=== PATIENT | male | born 1955 | race Caucasian/White ===

== ENCOUNTER → 2017-10-01 | Outpatient (CLI) | payer OTHER ==
--- NOTE | 2017-10-01 12:36 | US ---
EXAMINATION TYPE: US carotid duplex BILAT DATE OF EXAM: 10/01/2017 COMPARISON: NONE CLINICAL HISTORY: G45.9 Transient cerebral ischemic attack. EXAM MEASUREMENTS: RIGHT: Peak Systolic Velocity (PSV) cm/sec ----- Right CCA: 88.3 ----- Right ICA: 95.3 ----- Right ECA: 134 ICA/CCA ratio: 1.1 RIGHT: End Diastole cm/sec ----- Right CCA: 20.3 ----- Right ICA: 23.1 ----- Right ECA: 14.7 LEFT: Peak Systolic Velocity (PSV) cm/sec ----- Left CCA: 83.1 ----- Left ICA: 105 ----- Left ECA: 109 ICA/CCA ratio: 1.0 LEFT: End Diastole cm/sec ----- Left CCA: 20.4 ----- Left ICA: 38.7 ----- Left ECA: 14.7 VERTEBRALS (direction of flow): Right Vertebral: Antegrade Left Vertebral: Antegrade Rhythm: Normal Minimal plaque formation left Bulb Elevated velocity right ECA IMPRESSION: Mild grayscale atheromatous plaquing within the left carotid bulb with no hemodynamicall y significant stenosis in either common carotid or internal carotid artery.
--- NOTE | 2017-10-01 13:22 | XR ---
Cervical spine HISTORY: Neck pain, tingling and vomiting in hands and feet 6 views of the cervical spine No comparisons There is multilevel facet arthropathy. Multilevel spondylosis is present. Cervical vertebral bodies s how preserved height, alignment, and bone mineralization. Lateral extension endplate disc complex is causes foraminal encroachment at C3-4, C4-5, C5-6 and C6-7. Prevertebral soft tissues are normal. IMPRESSION: Degenerative disc disease.
== END | disposition home or self-care (01) ==
LOC: RADUSWWP 10:16
PROVIDERS: ATTEND Family Medicine
DX: M50.30 Other cervical disc degeneration, unspecified cervical region (principal); I65.22 Occlusion and stenosis of left carotid artery
CPT/HCPCS: 72050; 93880

== ENCOUNTER → 2021-06-18 | Outpatient (CLI) | payer OTHER ==
[2021-06-19 12:17] LABS: Alt. alternata IgE Class CLASS 0; Alternaria alternata IgE <0.10 kU/L (<0.10); Asperg. fumagatus IgE <0.10 kU/L (<0.10); Asperg. fumagatus IgE Class CLASS 0; Bermuda Grass IgE <0.10 kU/L (<0.10); Birch(Com.Silvr) IgE <0.10 kU/L (<0.10); Birch(Com.Silvr) IgE Class CLASS 0; Cat Epith & Dander IgE <0.10 kU/L (<0.10); Cat Epith & Dander IgE Class CLASS 0; Clad herbarum IgE <0.10 kU/L (<0.10); Clad herbarum IgE Class CLASS 0; Cockroach IgE <0.10 kU/L (<0.10); Cottonwood IgE <0.10 kU/L (<0.10); Dermato. Pteronyssinus Class CLASS 0; Dermato. Pteronyssinus IgE <0.10 kU/L (<0.10); Dermato. farinae IgE <0.10 kU/L (<0.10); Dermato. farinae IgE Class CLASS 0; Dog Dander IgE <0.10 kU/L (<0.10); Elm IgE <0.10 kU/L (<0.10); IgE (Allergen) 20.5 IU/mL (<114.0); Maple (Box Elder) IgE 0.25 kU/L (<0.10); Maple (Box Elder) IgE Class CLASS 0/1; Mountain Cedar IgE <0.10 kU/L (<0.10); Mountain Cedar IgE Class CLASS 0; Mouse Urine IgE Class CLASS 0; Mouse Urine Proteins,IgE <0.10 kU/L (0.10); Nettle IgE <0.10 kU/L (<0.10); Nettle IgE Class CLASS 0; Oak IgE <0.10 kU/L (<0.10); Penicillium chrysogenum IgE <0.10 kU/L (<0.10); Penicillium chrysogenum IgE Cl CLASS 0; Rough Marshelder IgE <0.10 kU/L (<0.10); Rough Marshelder IgE Class CLASS 0; Timothy Grass IgE <0.10 kU/L (<0.10); Timothy Grass IgE Class CLASS 0; White Ash IgE Class CLASS 0
== END | disposition home or self-care (01) ==
LOC: LABWHC1 10:41
PROVIDERS: ATTEND Otolaryngology Otolaryngology/Facial Plastic Surgery
DX: J31.0 Chronic rhinitis (principal)
CPT/HCPCS: 36415; 82785; 86003

== ENCOUNTER → 2022-06-18 | Outpatient (CLI) | payer MEDICARE, OTHER ==
--- NOTE | 2022-06-18 12:49 | XR ---
EXAMINATION TYPE: XR cervical spine comp DATE OF EXAM: 06/18/2022 COMPARISON: NONE HISTORY: Pain TECHNIQUE: Four views are submitted. FINDINGS: The odontoid is intact. There are no compression deformities. The prevertebral soft tissue structur es are within normal limits. Hypertrophic and degenerative changes of cervical spine are noted most marked at level C4-T1. Multilevel facet arthropathy. There is bilateral multilevel foraminal encroach ment. Calcifications in the soft tissue the neck likely reflect atherosclerotic change of the carotid bifurcations. IMPRESSION: 1. Multilevel moderate to severe degenerative disc disease, facet arthropathy and hypertrophic spurri ng with multilevel bilateral significant foraminal protrusion. Correlate clinically..
== END | disposition home or self-care (01) ==
LOC: RADXRMAIN 12:26
PROVIDERS: ATTEND Family Medicine
DX: M47.812 Spondylosis without myelopathy or radiculopathy, cervical region (principal); M50.30 Other cervical disc degeneration, unspecified cervical region
CPT/HCPCS: 72050

== ENCOUNTER → 2022-06-30 | Outpatient (CLI) | payer MEDICARE, OTHER ==
--- NOTE | 2022-06-30 10:30 | MR ---
MRI CERVICAL SPINE: CLINICAL HISTORY: Neck pain Neck pain TECHNIQUE: Multiplanar, multisequence imaging of the cervical spine is performed without IV contrast. COMPARISON: Cervical spine x-ray June 18, 2022 FINDINGS: Sagittal images of the cervical spine show the craniocervical junction to appear within nor mal limits. The cervical and upper thoracic spinal cord is normal in caliber and signal. There is pe rsistent reversal of normal cervical curvature centered at C5-C6 level. There is grade 1 anterolisth esis C4 on C5 redemonstrated. The vertebral body heights are normal. Mild to moderate disc space narr owing C4-C5 level. Moderate disc space narrowing and anterior spurring C5-C6 and C6-C7 levels. Hetero geneous Modic type I endplate changes at C6-C7 level noted. Axial images show C2-C3 level to appear within normal limits. Axial images at C3-C4 level show uncovertebral facet degenerative changes causing mild left and mild to moderate right-sided neural foraminal narrowing. Axial images at C4-C5 level show spondylolisthesis with left paracentral spur disc complex effacing a nterolateral thecal sac up to ventral surface of spinal cord which is indented and causing asymmetric moderate to severe left-sided neural foraminal narrowing. Axial images at C5-C6 level show posterior spur disc complex effacing the anterior thecal sac and cau sing mild to moderate right greater than left bilateral neural foraminal narrowing. Axial images at C6-C7 level from broad base posterior spur disc complex effacing the anterior thecal sac and causing moderate right and severe left-sided neural foraminal narrowing. Axial images at C7-T1 level appear within normal limits. IMPRESSION: Reversal of normal cervical curvature. Multilevel degenerative changes with most signific ant findings noted C4-C5 through C6-C7 levels as detailed above.
== END | disposition home or self-care (01) ==
LOC: RADMRIMAIN 09:28
PROVIDERS: ATTEND Family Medicine
DX: M47.812 Spondylosis without myelopathy or radiculopathy, cervical region (principal); M50.223 Other cervical disc displacement at C6-C7 level; M50.30 Other cervical disc degeneration, unspecified cervical region; M99.71 Connective tissue and disc stenosis of intervertebral foramina of cervical region; M43.12 Spondylolisthesis, cervical region
CPT/HCPCS: 72141

== ENCOUNTER → 2022-07-04 | Outpatient (CLI) | payer MEDICARE, OTHER ==
--- NOTE | 2022-07-04 15:03 | US ---
EXAMINATION TYPE: US carotid duplex BILAT DATE OF EXAM: 07/04/2022 COMPARISON: 10/01/2017 CLINICAL HISTORY: I65.29 OCCLUSION AND STENOSIS OF CAROTID ARTERY. TECHNIQUE: Carotid duplex ultrasound examination. Indirect Doppler criteria was utilized. FINDINGS: EXAM MEASUREMENTS: RIGHT: Peak Systolic Velocity (PSV) cm/sec ----- Right CCA: 97.5 ----- Right ICA: 104.4 ----- Right ECA: 106.8 ICA/CCA ratio: 1.1 RIGHT: End Diastole cm/sec ----- Right CCA: 24.3 ----- Right ICA: 23.1 ----- Right ECA: 8.7 LEFT: Peak Systolic Velocity (PSV) cm/sec ----- Left CCA: 102.0 ----- Left ICA: 77.5 ----- Left ECA: 108.4 ICA/CCA ratio: 0.8 LEFT: End Diastole cm/sec ----- Left CCA: 24.0 ----- Left ICA: 19.1 ----- Left ECA: 11.3 VERTEBRALS (direction of flow): Right Vertebral: Antegrade Left Vertebral: Antegrade Rhythm: Normal CATALYTIC CONVERTER OPERATOR NOTES: Mild plaque visualized in bilateral bulbs. No significant velocity elevations. IMPRESSION: 1. Atheromatous plaquing without significant flow-limiting stenosis. Criteria for Assigning % of Stenosis / Diameter reduction (Estimation based on the indirect measurements of the internal carotid artery velocities (ICA PSV). 1. Normal (no stenosis)=ICA PSV < 125 cm/s: ratio < 2.0: ICA EDV<40 cm/s. 2. Less than 50% stenosis=ICA PSV < 125 cm/s: ratio < 2.0: ICA EDV<40 cm/s. 3. 50 to 69% stenosis=ICA PSV of 125 to 230 cm/s: ration 2.0 ? 4.0: ICA EDV 40-100 cm/s. 4. Greater than 70% stenosis to near occlusion= ICA PSV > 230 cm/s: ratio > 4.0: ICA EDV > 100 cm/s. 5. Near occlusion= ICA PSV velocities may be low or undetectable: variable ratio and ICA EDV. 6. Total occlusion=unable to detect flow.
== END | disposition home or self-care (01) ==
LOC: RADUSWWP 13:53
PROVIDERS: ATTEND Family Medicine
DX: I65.23 Occlusion and stenosis of bilateral carotid arteries (principal)
CPT/HCPCS: 93880

== ENCOUNTER 2022-10-23 12:19 | Inpatient (IN) | payer MEDICARE, OTHER ==
[2022-10-23 13:00] LABS: Basophils % (A) 1 %; Eosinophils # (A) 0.2 k/uL (0-0.7); Eosinophils % (A) 3 %; HCT 44.1 % (39.0-53.0); Lymphocytes # (A) 1.9 k/uL (1.0-4.8); Lymphocytes % (A) 38 %; MCH 32.6 pg (25.0-35.0); MCHC 34.1 g/dL (31.0-37.0); MCV 95.6 fL (80.0-100.0); Mean Platelet Volume 8.7; Monocytes # (A) 0.4 k/uL (0-1.0); Monocytes % (A) 8 %; Neutrophils # (A) 2.3 k/uL (1.3-7.7); Neutrophils % (A) 46 %; Platelet Count 165 k/uL (150-450); RBC 4.61 m/uL (4.30-5.90); RDW 12.7 % (11.5-15.5); WBC 5.1 k/uL (3.8-10.6)
[2022-10-23 13:08] LABS: ALT 23 U/L (4-49); AST 31 U/L (17-59); African American GFR (CKD) >90 (>60 ml/min/1.73 sqM); Albumin 4.1 g/dL (3.5-5.0); Alkaline Phosphatase 88 U/L (38-126); Anion Gap 11 mmol/L; Blood Urea Nitrogen 15 mg/dL (9-20); Calcium 8.6 mg/dL (8.4-10.2); Carbon Dioxide 23 mmol/L (22-30); Chloride 105 mmol/L (98-107); Glucose 88 mg/dL (74-99); Non-African American GFR(CKD) >90 (>60 ml/min/1.73 sqM); Potassium 4.5 mmol/L (3.5-5.1); Sodium 139 mmol/L (137-145); Total Bilirubin 0.5 mg/dL (0.2-1.3)
[2022-10-23 13:18] LABS: Partial Thromboplastin Time 22.2 sec (22.0-30.0); Prothrombin Time 10.4 sec (9.0-12.0)
--- NOTE | 2022-10-23 13:35 | XR ---
EXAMINATION TYPE: XR chest 2V DATE OF EXAM: 10/23/2022 COMPARISON: None HISTORY: 67-year-old male with chest pain TECHNIQUE: PA and lateral views FINDINGS: Heart normal size. Aorta and pulmonary vasculature within normal limits. Mild patchy density at the m edial right base. No other consolidation or pleural effusion. IMPRESSION: Mild patchy atelectasis versus developing infiltrate at the medial right base. Correlate with patient 's symptoms. No other acute process seen.
--- NOTE | 2022-10-23 14:37 | ED ---
Chest Pain HPI - General Source: patient, RN notes reviewed Mode of arrival: ambulatory <Anju Lizarraga - Last Filed: 10/23/22 14:38> - General Source: RN notes reviewed, old records reviewed - History of Present Illness MD Complaint: chest pain -: hour(s) Pain Location: substernal, left chest Pain Radiation: LUE Severity: moderate Severity scale (1-10): 6 Quality: tightness, heaviness Consistency: constant Improves With: nothing Worsens With: exertion Anginal Symptoms: diaphoresis, dyspnea, sense of impending doom Other Symptoms: palpitations Treatments Prior to Arrival: none <Perry Head - Last Filed: 10/23/22 17:06> - General Chief Complaint: Chest Pain Stated Complaint: Michael sent - heart Time Seen by Provider: 10/23/22 13:57 - History of Present Illness Initial Comments: Patient is a 67-year-old male presenting to the emergency room at the direction of his primary care provider with complaints of chest pain. He reports that the pain has been ongoing intermittent but persistent for approximately 1 week. He states that he started anteriorly and was worse with movement and done change to a sharp stabbing like pain that felt as though it was radiating from his back all the way through his chest. He states that the symptoms were worse after walking his dog multiple times this week with improvement by resting and taking Motrin. At this time he is complaining of left-sided chest pain with characteristics of mild dull ache anteriorly that is worse with movement. He denies any associated symptoms including any shortness of breath, diaphoresis, headache, dizziness, edema, nausea, vomiting, fevers or chills. He reports due to cardiovascular history his family he did undergo a cardiac catheterization for diagnostics approximately 20 years ago which was negative. (Anju Lizarraga) - Related Data Home Medications Medication Instructions Recorded Confirmed Fluticasone Nasal [place] [Flonase 1 spr EA NOSTRIL BID 10/23/22 10/23/22 Nasal [place]] Glucosam/Niko-Msm1/C/Gilbert/Bosw 1 tab PO DAILY 10/23/22 10/23/22 [Glucosamine-Chondroitin Tablet] Loratadine [Claritin] 10 mg PO DAILY 10/23/22 10/23/22 Allergies Allergy/AdvReac Type Severity Reaction Status Date / Time No Known Allergies Allergy Verified 10/23/22 15:38 Review of Systems ROS Other: All systems not noted in ROS Statement are negative. <Anju Lizarraga - Last Filed: 10/23/22 14:38> ROS Other: All systems not noted in ROS Statement are negative. <AdilenePerry B - Last Filed: 10/23/22 17:06> ROS Statement: Those systems with pertinent positive or pertinent negative responses have been documented in the HPI. EKG Findings - EKG Comments: EKG Findings:: EKG shows sinus rhythm 68 IA 154 QRS 96 QTc 394 - EKG Results: EKG: interpreted by ERMD, not changed from: (Repeat EKG shows sinus 68 IA 151 QRS [address] QTc [address] elevation) <Perry Head - Last Filed: 10/23/22 17:06> Past Medical History Past Medical History: No Reported History History of Any Multi-Drug Resistant Organisms: None Reported Past Surgical History: Orthopedic Surgery Additional Past Surgical History / Comment(s): bilat knees. nasal Past Psychological History: No Psychological Hx Reported Smoking Status: Never smoker Past Alcohol Use History: Occasional Past Drug Use History: None Reported <Anju Lizarraga - Last Filed: 10/23/22 14:38> General Exam <Anju Lizarraga - Last Filed: 10/23/22 14:38> General appearance: alert, in no apparent distress Head exam: Present: atraumatic, normocephalic, normal inspection Eye exam: Present: normal appearance, PERRL, EOMI. Absent: scleral icterus, conjunctival injection, periorbital swelling ENT exam: Present: normal exam, mucous membranes moist Neck exam: Present: normal inspection. Absent: tenderness, meningismus, lymphadenopathy Respiratory exam: Present: normal lung sounds bilaterally. Absent: respiratory distress, wheezes, rales, rhonchi, stridor Cardiovascular Exam: Present: regular rate, normal rhythm, normal heart sounds. Absent: systolic murmur, diastolic murmur, rubs, gallop, clicks GI/Abdominal exam: Present: soft, normal bowel sounds. Absent: distended, tenderness, guarding, rebound, rigid Extremities exam: Present: normal inspection, full ROM, normal capillary refill. Absent: tenderness, pedal edema, joint swelling, calf tenderness Back exam: Present: normal inspection Neurological exam: Present: alert, oriented X3, CN II-XII intact Psychiatric exam: Present: normal affect, normal mood Skin exam: Present: warm, dry, intact, normal color. Absent: rash <Perry Head - Last Filed: 10/23/22 17:06> - General Exam Comments Initial Comments: Visual Physical Exam Vital signs reviewed General: Well-appearing, nontoxic, no acute distress. Head: Normocephalic, atraumatic Eyes: PERRLA, EOMI ENT: Airway patent Chest: Nonlabored breathing Skin: No visual rash, normal skin tone Neuro: Alert and oriented 3 Musculoskeletal: No gross abnormalities (Anju Lizarraga) Course <Perry Head - Last Filed: 10/23/22 17:06> Vital Signs 10/23/22 10/23/22 12:25 15:08 Temperature 97.7 F Pulse Rate 71 73 Respiratory 18 18 Rate Blood Pressure 157/88 146/77 O2 Sat by Pulse 98 96 Oximetry - Reevaluation(s) Reevaluation #1: 10/23/22 17:02 Medical record is reviewed (Perry Head) Reevaluation #2: 10/23/22 17:02 Patient symptoms remain episodic here in the ER (Perry Head) Reevaluation #3: 10/23/22 17:04 Patient symptoms remain episodic as he is not showing exertion (Perry Franks pp) Reevaluation #4: 10/23/22 17:04 Was pt. sent in by a medical professional or institution? @ -no Did you speak to anyone other than the patient for history? @ -no Did you review nursing and triage notes? @ -agree Were old charts reviewed? @ -no Differential Diagnosis? @ -prior EKG interpreted by me (3pts min.)? @ -yes X-rays interpreted by me (1pt min.)? @ -yes CT interpreted by me (1pt min.)? @ -no U/S interpreted by me (1pt. min.)? @ -no What testing was considered but not performed? (CT, X-rays, U/S, labs)? Why? @ -no What meds were considered but not given? Why? @ -no Did you discuss the management of the patient with other professionals? @ -no Did you reconcile home meds? @ -no Was smoking cessation discussed for >3mins.? @ -no Was critical care preformed (if so, how long)? @ -Yes Were there social determinants of health that impacted care today? How? (Homelessness, low income, unemployed, alcoholism, drug addiction, t ransportation, low edu. Level, literacy, decrease access to med. care, correction, rehab)? @ -no Was there de-escalation of care discussed even if they declined? (Discuss DNR or withdrawal of care, Hospice)? @ -no What co-morbidities impacted this encounter? (DM, HTN, Smoking, COPD, CAD, Cancer, CVA, Hep., AIDS, mental health diagnosis, sleep apnea, morbid obesity)? @ -no Was patient admitted / discharged? @ -admit Undiagnosed new problem with uncertain prognosis? @ -no Drug Therapy requiring intensive monitoring for toxicity (Heparin, Nitro, Insulin, Cardizem)? @ -no Were any procedures done? @ -no Diagnosis/symptom? @ -NSTEMI Acute, or Chronic, or Acute on Chronic? @ -acute Uncomplicated (without systemic symptoms) or Complicated (systemic symptoms)? @ -no Side effects of treatment? @ -no Exacerbation, Progression, or Severe Exacerbation] @ - Poses a threat to life or bodily function? @ -no (Perry Head) Reevaluation #5: 10/23/22 17:05 Differential Chest Pain: Stable Angina, Unstable Angina, STEMI, NSTEMI Aortic Dissection, Pneumothorax, Musculoskeletal, Esophageal Spasm GERD, Cholecystitis, Pancreatitis, Zoster, this is not meant to be an all-inclusive list. (Perry Head) Chest Pain MDM <Perry Head - Last Filed: 10/23/22 17:06> - MDM 67 male to the emergency department for evaluation chest pain exertional dyspnea with elevated troponin non-ST elevated TX. Members. Patient be admitted for cardiology to see (Perry Head) Critical Care Time Critical Care Time: Yes Total Critical Care Time: 31 <Perry Head - Last Filed: 10/23/22 17:06> Disposition <Anju Lizarraga - Last Filed: 10/23/22 14:38> Is patient prescribed a controlled substance at d/c from ED?: No Time of Disposition: 15:00 <Perry Head - Last Filed: 10/23/22 17:06> Clinical Impression: Chest pain, Acute non-ST elevation myocardial infarction (NSTEMI), Unstable angina pectoris, ACS (acute coronary syndrome) Disposition: ADMITTED IP TO THIS HOSP Condition: Serious
[2022-10-23] MEDS ORDERED: HEPARIN SODIUM 1,000 UN/ML (10ML VL) IV ONE (15:31)
[2022-10-23] MEDS ORDERED: NALOXONE 0.4 MG/ML 1 ML VIAL IV PRN (15:31)
[2022-10-23] MEDS ORDERED: MORPHINE SULFATE 4 MG/ML SYRINGE IV PRN (15:31)
[2022-10-23] MEDS ORDERED: ONDANSETRON 4 MG/2 ML VIAL IVP PRN (15:31)
[2022-10-23] MEDS ORDERED: HEPARIN SODIUM 1,000 UN/ML (10ML VL) IV PRN (15:31)
[2022-10-23] MEDS: SODIUM CHLORIDE 0.9% 1,000 ML IV SCH (16:49)
[2022-10-23] MEDS: HEPARIN SOD,PORK IN 0.45% NACL 25,000 UNIT in 0.45% NACL 1 250ML.BAG IV SCH ×2 (16:53→23:55)
[2022-10-23] MEDS ORDERED: ASPIRIN 325 MG TAB PO STA (17:33)
[2022-10-23] MEDS ORDERED: NITROGLYCERIN OINT 1 INCH/GM PACKET TOPICAL SCH ×2 (17:45→23:29)
[2022-10-23] MEDS: ATORVASTATIN 40 MG TAB PO SCH (20:28)
[2022-10-23] MEDS ORDERED: ACETAMINOPHEN TAB 325 MG TAB PO PRN (21:29)
[2022-10-23] MEDS: FLUTICASONE 50MCG/SPRAY NASAL 16GM EA NOSTRIL SCH (21:38)
[2022-10-24] MEDS: SODIUM CHLORIDE 0.9% 1,000 ML IV SCH ×2 (00:09→14:49)
[2022-10-24] MEDS: NITROGLYCERIN OINT 1 INCH/GM PACKET TOPICAL SCH ×2 (03:17→15:00)
--- NOTE | 2022-10-24 03:26 | CONS ---
CONSULTATION CHIEF COMPLAINT: Chest pain. HISTORY OF PRESENT ILLNESS: This is a 67-year-old gentleman with no significant past medical history who has been having recurrent episodes of exertional chest discomfort from the beginning of this week. He had the first episode of chest discomfort while biking that he describes as a poking sensation in the interscapular area. On next day while he was walking and biking again, he had another episode of chest pain. He went to see Dr. Rodriguez, his primary care physician who saw him today, did an EKG that showed ischemic changes in the precordial leads due to which he is sent to the emergency room. At the time of my evaluation, the patient is pain free, hemodynamically stable and in no apparent distress. He has had 2 sets of cardiac enzymes at 0.2 and 0.2. Creatinine is 0.78, and hemoglobin and platelet count are normal. His EKG shows sinus rhythm with T-wave inversions in the precordial leads, raising the possibility of a hemodynamically significant disease in the LAD distribution. I reviewed the EKG troponin findings with the patient and advised him to be treated with aspirin, intravenous heparin, nitrates, beta blockers and statins. I will check a lipid profile on him and I ordered an echocardiogram for tomorrow morning. I will do a cardiac catheterization on him in the morning. I have explained risks, benefits, and alternatives. PAST MEDICAL HISTORY: Negative for hypertension, diabetes, dyslipidemia. MEDICATIONS: None. ALLERGIES: None. FAMILY HISTORY: Negative for premature coronary artery disease. SOCIAL HISTORY: Negative for current smoking issues or drug abuse. REVIEW OF SYSTEMS: HEENT: Unremarkable. CARDIAC: As described above. RESPIRATORY: Negative. GI: Negative. : Negative. ALLERGY/IMMUNOLOGY: Negative. SKIN: Negative. MUSCULOSKELETAL: Negative. ENDOCRINE: Negative. CONSTITUTIONAL: Negative. ONCOLOGICAL: Negative. REGIONAL PROJECT MANAGER: Negative. Rest of the system review is not relevant. PHYSICAL EXAMINATION: GENERAL: Comfortable at rest. Heart rate is 73 beats per minute, blood pressure is 146/77, respiratory rate is 18. NECK: There is no jugular venous distention. Carotid upstroke is normal. There is no bruit. CHEST: Reveals good air entry bilaterally. HEART: Reveals first and second heart sounds. No gallop. No murmur. No rub. ABDOMEN: Soft, nontender. EXTREMITIES: Examination of extremities did not reveal any edema. Peripheral pulses are felt. ASSESSMENT: Non ST-segment elevation myocardial infarction. PLAN: The patient will be treated with optimal medical therapy and will be scheduled for cardiac catheterization tomorrow. DELIO / RASHMI: [id number] /
[2022-10-24 07:11] LABS: Basophils % (A) 1 %; Eosinophils # (A) 0.2 k/uL (0-0.7); Eosinophils % (A) 4 %; HCT 38.6 % (39.0-53.0); HGB 13.2 gm/dL (13.0-17.5); Lymphocytes # (A) 1.9 k/uL (1.0-4.8); Lymphocytes % (A) 39 %; MCH 33.1 pg (25.0-35.0); MCV 97.1 fL (80.0-100.0); Mean Platelet Volume 8.9; Monocytes # (A) 0.3 k/uL (0-1.0); Monocytes % (A) 5 %; Neutrophils # (A) 2.3 k/uL (1.3-7.7); Neutrophils % (A) 48 %; Platelet Count 158 k/uL (150-450); RBC 3.98 m/uL (4.30-5.90); RDW 12.6 % (11.5-15.5); WBC 4.9 k/uL (3.8-10.6)
[2022-10-24] MEDS ORDERED: ASPIRIN 325 MG TAB PO STA (07:28)
[2022-10-24] MEDS ORDERED: ATORVASTATIN 80 MG TAB PO STA (07:28)
[2022-10-24] MEDS ORDERED: ALPRAZolam 0.5 MG TAB PO PRN (07:28)
[2022-10-24] MEDS ORDERED: ALPRAZolam 0.25 MG TAB PO PRN (07:28)
[2022-10-24] MEDS ORDERED: NITROGLYCERIN SL TABS 0.4 MG TAB SUBLINGUAL PRN ×2 (07:28→12:24)
[2022-10-24 07:45] LABS: ALT 21 U/L (4-49); AST 26 U/L (17-59); African American GFR (CKD) >90 (>60 ml/min/1.73 sqM); Albumin 3.3 g/dL (3.5-5.0); Alkaline Phosphatase 68 U/L (38-126); Anion Gap 5 mmol/L; Blood Urea Nitrogen 14 mg/dL (9-20); Calcium 8.2 mg/dL (8.4-10.2); Carbon Dioxide 27 mmol/L (22-30); Chloride 106 mmol/L (98-107); Glucose 97 mg/dL (74-99); Non-African American GFR(CKD) >90 (>60 ml/min/1.73 sqM); Potassium 4.1 mmol/L (3.5-5.1); Sodium 138 mmol/L (137-145); Total Bilirubin 0.5 mg/dL (0.2-1.3); Total Protein 5.8 g/dL (6.3-8.2)
[2022-10-24 08:00] VITALS: TEMP 97.9
[2022-10-24] MEDS ORDERED: NON FORMULARY DRUG (Glucosam/Chon-Msm1/C/Mang/Bosw [Glucosamine-Chondroitin Tablet] 1 EACH PO SCH (09:00)
[2022-10-24] MEDS ORDERED: MIDAZOLAM 2 MG/2 ML VIAL IV ONE ×2 (09:06→12:03)
[2022-10-24] MEDS ORDERED: IV FLUID CONTINUATION 1,000 ML IV ONE (09:07)
[2022-10-24] MEDS ORDERED: fentaNYL (PF) 50 MCG/ML 2 ML AMP IV ONE ×2 (09:07→10:52)
[2022-10-24] MEDS ORDERED: LIDOCAINE 1% INJ 10MG/ML (5 ML VIAL-PF) SQ ONE (09:07)
[2022-10-24] MEDS ORDERED: VERAPAMIL SYRINGE (5 MG/10 ML) INTRAARTER ONE ×2 (09:08→10:56)
[2022-10-24] MEDS ORDERED: HEPARIN SODIUM 1,000 UN/ML (10ML VL) IV ONE (09:16)
[2022-10-24] MEDS ORDERED: IOPAMIDOL-370 200ML BTL INJ ONE ×2 (09:32→11:51)
--- NOTE | 2022-10-24 10:36 | CA ---
Transthoracic Echo Report Name: Golden Finney Age: 67 Gender: M : 1955 Exam Date: 10/24/2022 08:05 Exam Location: [facility] Ht (in): 71 Wt (lb): 225 Ordering Physician: Jaret Cohen MD ([id number]) Attending/Referring Phys: Vicki BOBBY [employer] TM Procedure CPT: Indications: elevated trop Cardiac Hx: Technical Quality: Fair Contrast 1: Total Dose (mL): Contrast 2: Total Dose (mL): MEASUREMENTS (Male / Female) Normal Values 2D ECHO LV Diastolic Diameter PLAX 5.4 cm 4.2 - 5.9 / 3.9 - 5.3 cm IVS Diastolic Thickness 1.4 cm 0.6 - 1.0 / 0.6 - 0.9 cm LVPW Diastolic Thickness 0.8 cm 0.6 - 1.0 / 0.6 - 0.9 cm LV Relative Wall Thickness 0.4 RV Internal Dim ED PLAX 3.0 cm LVOT Diameter 2.0 cm Aortic Root Diameter 3.6 cm LA Systolic Diameter LX 2.7 cm 3.0 - 4.0 / 2.7 - 3.8 cm LV Diastolic Volume MOD BP 62.0 cm??? 67 - 155 / 56 - 104 cm??? LV Systolic Volume MOD BP 22.5 cm??? 22 - 58 / 19 - 49 cm??? LV Ejection Fraction MOD BP 63.7 % >= 55 % LV Diastolic Volume MOD 4C 59.2 cm??? LV Systolic Volume MOD 4C 19.8 cm??? LV Ejection Fraction MOD 4C 66.6 % LV Diastolic Length 4C 7.7 cm LV Systolic Length 4C 6.1 cm LV Diastolic Volume MOD 2C 59.0 cm??? LV Systolic Volume MOD 2C 26.2 cm??? LV Ejection Fraction MOD 2C 55.6 % LV Diastolic Length 2C 6.9 cm LV Systolic Length 2C 6.1 cm Ascending Aorta Diameter 4.1 cm DOPPLER AI Peak Velocity 367.3 cm/s AI Peak Gradient 54.0 mmHg AI Pressure Half Time 815.7 ms MR Peak Velocity 394.7 cm/s MR Peak Gradient 62.3 mmHg Mitral E Point Velocity 74.0 cm/s Mitral A Point Velocity 89.1 cm/s Mitral E to A Ratio 0.8 MV Deceleration Time 367.6 ms TR Peak Velocity 118.0 cm/s TR Peak Gradient 5.6 mmHg PV Peak Velocity 122.4 cm/s PV Peak Gradient 6.0 mmHg FINDINGS Left Ventricle Left ventricular ejection fraction is estimated at 60-65 %. Right Ventricle Normal right ventricular size and function. Right Atrium Normal right atrial size. Left Atrium LA Volume Index= 22.1ml/m2 Mitral Valve Structurally normal mitral valve. Mild MR. Aortic Valve Trileaflet aortic valve. Mild to Mod AI. Tricuspid Valve Structurally normal tricuspid valve. Trace TR. Pulmonic Valve Pulmonic valve not well visualized. No pulmonic regurgitation. Pericardium Normal pericardium. Aorta Ascending Ao Mey= 4.1cm CONCLUSIONS Normal LV size and systolic function. There is mild mitral and tricuspid regurgitation also mild aortic regurgitation is noted. No significant pulmonary hypertension no pericardial effusion Previewed by: Dr. Melba Lynn MD (Electronically Signed) Final Date: 24 Oct 2022 10:34
[2022-10-24] MEDS ORDERED: PRASUGREL 10 MG TAB ONE (10:49)
[2022-10-24] MEDS ORDERED: PRASUGREL 10 MG TAB PO ONE (10:52)
[2022-10-24] MEDS: HEPARIN SODIUM 1,000 UN/ML (10ML VL) IV ONE ×3 (10:54→12:05)
[2022-10-24] MEDS ORDERED: IV FLUID CONTINUATION 700 ML IV ONE (10:55)
--- NOTE | 2022-10-24 11:07 | P.HPIM ---
History of Present Illness H&P Date: 10/24/22 Chief Complaint: Exertional dyspnea Patient is a 67-year-old male without significant past medical history presents to ER with complaints of chest pain with exertion for the past 1 week. Patient states that while he was biking about a week ago developed back pain and the patient developed back pain again which turned into chest pressure/discomfort. No associated nausea or vomiting. No diaphoresis. No headache or dizziness or lightheadedness. Patient was also having belching for the past 2 weeks. Patient made an appointment with Dr. Rodriguez and was seen yesterday. EKG was done which showed ischemic changes in the office and patient was referred to ER for further evaluation. EKG in the ER showed sinus rhythm with T wave inversions in the precordial leads. Patient was given aspirin no stridor heparin drip, beta-blockers and statins. Patient had cardiac catheterization this morning and had successful stenting of the mid LAD with reduction of stenosis from 100% to 0%. Patient currently denies any complaints of chest pain or shortness of breath. No palpitations. No leg swelling. No nausea vomiting abdominal pain or diarrhea. Chest x-ray showed mild patchy atelectasis versus developing infiltrate at the medial lung base. Correlate with patient's symptoms. No other acute process seen. Laboratory data showed WBC 5.1 hemoglobin 15.0 and platelets 165 Sodium 139 potassium 4.5 chloride 105 bicarb is 23 BUN 15 and creatinine 0.78 and liver enzymes are not elevated. Troponin 0.286, 0.274 and 0.249. Review of Systems Constitutional: Patient denies any fever or chills . no Generalized weakness. Abdomen: Patient denied any nausea or vomiting or abd. pain Cardiovascular: Patient denies any chest pain or short of breath no palpitations. Respiratory: patient denied any cough . no sputum production. No shortness of breath Neurologic: Patient denied any numbness or tingling headache. Musculoskeletal: Patient denies any complaints of joint swelling or deformity. Skin: Negative Psychiatric: Negative Endocrine: No heat or cold intolerance. No recent weight gain. Genitourinary: No dysuria or hematuria. All other 14 point ROS negative except the above Past Medical History Past Medical History: No Reported History History of Any Multi-Drug Resistant Organisms: None Reported Past Surgical History: Orthopedic Surgery Additional Past Surgical History / Comment(s): bilat knees. nasal Past Psychological History: No Psychological Hx Reported Smoking Status: Never smoker Past Alcohol Use History: Occasional Past Drug Use History: None Reported - Past Family History Mother Family Medical History: Hypertension Additional Family Medical History / Comment(s): Heart disease Father Family Medical History: Hypertension Additional Family Medical History / Comment(s): Heart disease Brother(s) Family Medical History: Hypertension Additional Family Medical History / Comment(s): Heart disease Medications and Allergies Home Medications Medication Instructions Recorded Confirmed Type Fluticasone Nasal [place] [Flonase 1 spr EA NOSTRIL BID 10/23/22 10/23/22 History Nasal [place]] Glucosam/Niko-Msm1/C/Gilbert/Bosw 1 tab PO DAILY 10/23/22 10/23/22 History [Glucosamine-Chondroitin Tablet] Loratadine [Claritin] 10 mg PO DAILY 10/23/22 10/23/22 History Allergies Allergy/AdvReac Type Severity Reaction Status Date / Time No Known Allergies Allergy Verified 10/23/22 15:38 Physical Exam Vitals: Vital Signs Temp Pulse Resp BP Pulse Ox 10/24/22 07:56 97.9 F 76 18 131/76 95 10/24/22 05:00 55 L 16 113/70 97 10/24/22 01:00 58 L 14 117/65 97 10/23/22 20:00 74 16 147/81 96 10/23/22 18:48 78 18 155/90 97 10/23/22 15:08 73 18 146/77 96 10/23/22 12:25 97.7 F 71 18 157/88 98 Intake and Output 10/23/22 10/24/22 10/24/22 22:59 06:59 14:59 Intake Total 70.347 103.415 Balance 70.347 103.415 Intake: Intake, IV Titration 70.347 103.415 Amount Heparin Sod,Pork in 0.45% 70.347 103.415 NaCl 25,000 unit In 0.45 % NaCl 1 250ml.bag @ 9.8 UNITS/KG/HR 10.002 mls/hr IV .Q24H [facility] Rx#: [id number] PHYSICAL EXAMINATION: Patient is lying in the bed comfortably, no acute distress, awake alert and oriented.. HEENT: Normocephalic. Neck is supple. Pupils reactive. Nostrils clear. Oral cavity is moist. Neck reveals no JVD, carotid bruits, or thyromegaly. CHEST EXAMINATION: Trachea is central. Symmetrical expansion. Lung gomes clear to auscultation and percussion. CARDIAC: Normal S1, S2 with no gallops. No murmurs ABDOMEN: Soft. Bowel sounds present. Nontender. No organomegaly. No abdominal bruits. Extremities: reveal no edema. No clubbing or cyanosis Neurologically awake, alert, oriented x3 with well-coordinated movements. No focal deficits noted Skin: No rash or skin lesions. Psychiatric: Coperative. Nonsuicidal, Musculoskeletal: No joint swelling or deformity. Normal range of motion. Results CBC & Chem 7: 10/24/22 06:12 10/24/22 06:12 Labs: Abnormal Lab Results - Last 24 Hours (Table) 10/23/22 10/23/22 10/23/22 Range/Units 12:39 15:24 18:10 RBC (4.30-5.90) m/uL Hct (39.0-53.0) % APTT (22.0-30.0) sec Calcium (8.4-10.2) mg/dL Troponin I 0.286 H* 0.274 H* 0.249 H* (0.000-0.034) ng/mL Total Protein (6.3-8.2) g/dL Albumin (3.5-5.0) g/dL 10/23/22 10/24/22 10/24/22 Range/Units 22:35 06:12 06:12 RBC 3.98 L (4.30-5.90) m/uL Hct 38.6 L (39.0-53.0) % APTT 32.2 H (22.0-30.0) sec Calcium 8.2 L (8.4-10.2) mg/dL Troponin I (0.000-0.034) ng/mL Total Protein 5.8 L (6.3-8.2) g/dL Albumin 3.3 L (3.5-5.0) g/dL 10/24/22 Range/Units 06:12 RBC (4.30-5.90) m/uL Hct (39.0-53.0) % APTT 57.1 H (22.0-30.0) sec Calcium (8.4-10.2) mg/dL Troponin I (0.000-0.034) ng/mL Total Protein (6.3-8.2) g/dL Albumin (3.5-5.0) g/dL Thrombosis Risk Factor Assmnt - DVT/VTE Prophylaxis DVT/VTE Prophylaxis: Pharmacologic Prophylaxis ordered Assessment and Plan Assessment: Acute non-ST elevated CO. Status postcardiac catheterization and stent placement to mid LAD. Exertional dyspnea and chest discomfort No prior history of smoking. DVT prophylaxis with heparin subcu Plan: Patient will be continued on telemetry monitoring. Status post cardiac catheterization and stent placement. Continue with aspirin, prasugrel, metoprolol and lisinopril and statins. Patient is currently on IV hydration with normal saline at 75 cc/h. Continue to follow closely for any arrhythmias.. Cardiology is on board. Currently patient is symptom-free. Time with Patient: Greater than 30
[2022-10-24] MEDS ORDERED: IOPAMIDOL-370 100ML BTL INJ ONE (12:00)
--- NOTE | 2022-10-24 12:21 | CC ---
CARDIAC CATHETERIZATION REPORT INDICATION: Acute dkm-VL-uokvbha elevation CA. PROCEDURE NOTE: After obtaining informed consent, left heart catheterization and coronary angiogram were performed via the right radial artery using standard Sissy catheters. The patient tolerated the procedure well without any obvious immediate complications. The patient received moderate conscious sedation. Total sedation time was 20 minutes. The patient received verapamil and heparin per protocol. The right radial artery access was obtained using Seldinger technique. A 6-Albanian sheath was placed and catheters and wires were floated into the ascending aorta under fluoroscopic guidance. FINDINGS: HEMODYNAMICS: 1. Left ventricular end-diastolic pressure is 15 mm. There is no significant gradient across the aortic valve. 2. Left ventriculogram: Left ventriculogram is not performed. ANGIOGRAPHIC DATA: Right coronary artery: Right coronary artery is a large dominant vessel and is free of significant stenosis. Left main coronary artery is a normal-sized vessel and is free of stenosis. It divides into left anterior descending coronary artery and circumflex coronary artery. Circumflex coronary artery and its branches are free of significant stenosis. LAD shows a focal 95% stenosis in its midportion. There are yiqru-vu-zsce collaterals from the distal RCA. CONCLUSION: A 95% focal stenosis involving the LAD with right to left collaterals to the distal RCA. PLAN: The patient will undergo angioplasty with stent placement of the same. MMODL / IJN: [id number] /
[2022-10-24] MEDS ORDERED: ATROPINE SULFATE 0.1 MG/ML 10ML SYRINGE IV PRN (12:24)
[2022-10-24] MEDS ORDERED: MAG HYDROX/AL HYDROX/SIMETH 30 ML CUP PO PRN (12:24)
[2022-10-24] MEDS ORDERED: RX INFO: IV CONTRAST WAS GIVEN 1 EACH MISC MISCELLANE PRN (12:24)
[2022-10-24] MEDS ORDERED: ZOLPIDEM 5 MG TAB PO PRN (12:24)
[2022-10-24] MEDS ORDERED: SODIUM CHLORIDE 0.9% 1,000 ML in EMPTY BAG 1 BAG IV SCH (12:30)
--- NOTE | 2022-10-24 12:33 | P.CARDCATH ---
Date of Procedure: 10/24/22 Description of Procedure: PERCUTANEOUS TRANSLUMINAL CORONARY ANGIOPLASTY CLINICAL INFORMATION: The patient is a 67-year-old male with no prior cardiac history who presented with symptoms of exertional chest discomfort and back discomfort with T-wave inversion anteriorly and troponin elevation consistent wi th non-STEMI. He underwent cardiac catheterization by Dr. Choen and was found to have significant obstructive disease involving the mid LAD. Recommendations were made regarding angioplasty and stenting. The procedure as well as the risks and the complications were discussed with the patient who was in full understanding and agreement. PROCEDURE: The patient was brought to the [facility] in the fasting and semi- sedated state. Using guidewire exchange technique the 6-Serbian sheath in the right radial artery was exchanged to a new 6-Serbian sheath. A 6 Serbian EBU 3.75 guiding catheter was introduced into the system. After cannulating the left main, attempt to advance 0.014 BMW J-wire across the lesion was unsuccessful, a Teliport microcatheter was introduced and subsequently a 0.014 whisper J was advanced across the lesion and positioned distally. That wire was exchanged to the BMW J-wire. Following that a 2.5 x 12 Treck balloon was advanced and inflated at 8 atmosphere. Following that a 3.25 x 18 mm Xience brigette point stent was deployed. It was dilated at 16 ryan. After removing the balloon an [employer] IVUS catheter was advanced and imaging were performed. Subsequently a 3.5 x 12 mm NC Treck balloon was advanced and inflation at 10 ryan were done and after removing the balloon a 4.0 x 15 mm NC Treck balloon was advanced and inflations at 8 ryan were done. Repeat imaging by ultrasound were performed. After the last inflation, after appropriate wait, the balloon and the guidewire were withdrawn back into the guiding catheter. Images were obtained and repeated. Those images reveal stable successful stenting. At that point, the guiding catheter, the balloon, and guidewire were removed. The sheath was removed. Hemostasis was obtained with deployment of a TR band. There were no immediate complications. The patient was returned to the room in stable condition. Of note, the patient received 11,000 units of heparin as well as Effient. His ACT was followed. He had chest discomfort and EKG changes that resolved at the end of the procedure. There was no immediate complications. RESULTS: Successful stenting of the mid LAD with reduction of stenosis from 1 00% to 0 %. There was slow flow in the diagonal branch prior to the angioplasty. RECOMMENDATIONS: The patient will continue on aspirin and Effient for 1 year without any interruption in addition to aggressive coronary risks modifications. The findings and recommendations were discussed with the patient and the family, they are in full understanding and agreement. Duration of sedation: 73 minutes
--- NOTE | 2022-10-24 12:45 | PN ---
PROGRESS NOTE A 67-year-old gentleman that presented to hospital with acute bnu-AE-ooilqnz elevation VA. I evaluated him yesterday evening in the ER. He is looking comfortable, free of chest pain. He is to undergo cardiac catheterization this morning. MMSADIQ / VALN: [id number] /
--- NOTE | 2022-10-24 13:57 | LTR ---
Dear Dr. Rodriguez: I performed cardiac catheterization on [facility]. A detailed catheterization note is enclosed in records. In brief, the patient presented to hospital with acute ffo-UV-piahobr elevation NC and cardiac catheterization I performed showed a tight mid LAD lesion that will be stented today. Thank you for allowing us to participate in the care of this pleasant gentleman. DELIO / RASHMI: [id number] /
[2022-10-24] MEDS: FLUTICASONE 50MCG/SPRAY NASAL 16GM EA NOSTRIL SCH ×2 (14:48→19:44)
[2022-10-24] MEDS: LORATADINE 10 MG TAB PO SCH (14:49)
[2022-10-24] MEDS: PANTOPRAZOLE 40 MG/10 ML VIAL IVP SCH (15:02)
[2022-10-24] MEDS: METOPROLOL SUCCINATE (ER) 25 MG TAB.ER.24H PO SCH (15:08)
[2022-10-24] MEDS: ATORVASTATIN 40 MG TAB PO SCH (19:45)
[2022-10-24] MEDS: lisinopriL 5 MG TAB PO SCH (19:45)
[2022-10-24 20:34] VITALS: RESP 16
[2022-10-25] MEDS: SODIUM CHLORIDE 0.9% 1,000 ML IV SCH (01:33)
[2022-10-25] MEDS ORDERED: HEPARIN SODIUM,PORCINE 2,500 UNIT in SODIUM CHLORIDE 0.9% 250 ML IRRIGATION PRN (07:00)
[2022-10-25] MEDS ORDERED: HEPARIN SODIUM,PORCINE 10,000 UNIT in SODIUM CHLORIDE 0.9% 1,000 ML IRRIGATION PRN (07:00)
[2022-10-25] MEDS ORDERED: PRASUGREL 10 MG TAB PO SCH (09:00)
[2022-10-25] MEDS ORDERED: ASPIRIN 81 MG PO SCH (09:00)
[2022-10-25 09:23] LABS: African American GFR (CKD) >90 (>60 ml/min/1.73 sqM); Anion Gap 7 mmol/L; Blood Urea Nitrogen 11 mg/dL (9-20); Calcium 8.4 mg/dL (8.4-10.2); Carbon Dioxide 25 mmol/L (22-30); Chloride 107 mmol/L (98-107); Glucose 131 mg/dL (74-99); Non-African American GFR(CKD) >90 (>60 ml/min/1.73 sqM); Potassium 3.9 mmol/L (3.5-5.1); Sodium 139 mmol/L (137-145)
[2022-10-25] MEDS: LORATADINE 10 MG TAB PO SCH (09:39)
[2022-10-25] MEDS: lisinopriL 5 MG TAB PO SCH (09:39)
[2022-10-25] MEDS: METOPROLOL SUCCINATE (ER) 25 MG TAB.ER.24H PO SCH (09:39)
[2022-10-25] MEDS: PANTOPRAZOLE 40 MG/10 ML VIAL IVP SCH (09:41)
[2022-10-25 10:10] LABS: Chol/HDL Ratio 5.32 Ratio
[2022-10-25] MEDS: FLUTICASONE 50MCG/SPRAY NASAL 16GM EA NOSTRIL SCH (10:33)
--- NOTE | 2022-10-25 11:49 | CONS ---
CONSULTATION HISTORY OF PRESENT ILLNESS: Golden is a 67-year-old gentleman, who presented to hospital with acute lsc-RM-pekdjoc elevation LA, underwent cardiac catheterization that revealed 95% stenosis involving LAD for which he underwent angioplasty with stent placement. This morning, the patient is doing well and is free of symptoms. PHYSICAL EXAMINATION: GENERAL: Comfortable at rest. VITAL SIGNS: Stable. NECK: There is no jugular venous distention. CHEST: Exam reveals good air entry bilaterally. HEART: Exam reveals first and second heart sounds. No gallop. ABDOMEN: Soft. EXTREMITIES: Did not reveal any edema. Peripheral pulses are felt. Right radial artery access site appears normal. LABORATORY DATA: Labs show that the hemoglobin is 15.2, potassium is 3.9, creatinine is 0.7. The patient will be discharged home on aspirin, Lipitor, Zestril, Toprol-XL, and Effient along with sublingual nitroglycerine on a p.r.n. basis. I will see him back in the office in next week and further optimize his therapies. He had an echocardiogram done, I will review the results. ASSESSMENT: Acute kyk-LL-oytjrxy elevation myocardial infarction. PLAN: The patient had a catheterization and angioplasty of LAD - stable for discharge. I am going to review the echo and he will have followup appointment through my office. MMODL / IJN: [id number] /
[2022-10-25 11:53] VITALS: BP 126/68; PULSE 60
--- NOTE | 2022-10-25 13:49 | P.DS ---
Providers Date of admission: 10/23/22 15:31 Expected date of discharge: 10/25/22 Attending physician: Rica Rolon Consults: 10/23/22 15:31 Consult Physician Routine Consulting Provider: Lilly Bush Consult Reason/Comments: nstemi Do you want consulting provider notified?: Yes 10/24/22 12:24 Consult Physician Routine Consulting Provider: Cardiology Jos Consult Reason/Comments: Post Interventional Patient Do you want consulting provider notified?: Already Contacted Primary care physician: Jesus Rodriguez Hospital Course: Discharge diagnoses; Acute non-ST elevated RI. Status postcardiac catheterization and stent placement to mid LAD. Exertional dyspnea and chest discomfort Hospital course; Patient is a 67-year-old male without significant past medical history presents to ER with complaints of chest pain with exertion for the past 1 week. Patient states that while he was biking about a week ago developed back pain and the following day patient developed back pain again which turned into chest pressure/discomfort. No associated nausea or vomiting. No diaphoresis. No headache or dizziness or lightheadedness. Patient was also having belching for the past 2 weeks. Patient made an appointment with Dr. Rodriguez and was seen yesterday. EKG was done which showed ischemic changes in the office and patient was referred to ER for further evaluation. EKG in the ER showed sinus rhythm with T wave inversions in the precordial leads. Patient was given aspirin no stridor heparin drip, beta-blockers and statins. Patient had cardiac catheterization this morning and had successful stenting of the mid LAD with reduction of stenosis from 100% to 0%. Patient currently denies any complaints of chest pain or shortness of breath. No palpitations. No leg swelling. No nausea vomiting abdominal pain or diarrhea. Chest x-ray showed mild patchy atelectasis versus developing infiltrate at the medial lung base. Correlate with patient's symptoms. No other acute process seen. Laboratory data showed WBC 5.1 hemoglobin 15.0 and platelets 165 Sodium 139 potassium 4.5 chloride 105 bicarb is 23 BUN 15 and creatinine 0.78 and liver enzymes are not elevated. Troponin 0.286, 0.274 and 0.249 10/25. Patient seen and examined. Sodium this morning is 139, potassium 3.9, BUN and 11, creatinine 0.72. Cardiology cleared the patient for discharge, being discharged on aspirin and Effient. Outpatient follow-up with cardiology PHYSICAL EXAMINATION: GENERAL: The patient is alert and oriented x3, not in any acute distress. Well developed, well nourished. HEENT: Pupils are round and equally reacting to light. EOMI. No scleral icterus. No conjunctival pallor. Normocephalic, atraumatic. No pharyngeal erythema. No thyromegaly. CARDIOVASCULAR: S1 and S2 present. No murmurs, rubs, or gallops. PULMONARY: Chest is clear to auscultation, no wheezing or crackles. ABDOMEN: Soft, nontender, nondistended, normoactive bowel sounds. No palpable organomegaly. MUSCULOSKELETAL: No joint swelling or deformity. EXTREMITIES: No cyanosis, clubbing, or pedal edema. NEUROLOGICAL: Gross neurological examination did not reveal any focal deficits. SKIN: No rashes. Patient Condition at Discharge: Good Plan - Discharge Summary Discharge Rx Participant: No New Discharge Prescriptions: New Prasugrel [Effient] 10 mg PO DAILY #30 tab lisinopriL [Zestril] 5 mg PO BID #60 tab Aspirin 81 mg PO DAILY #30 tab Atorvastatin [Lipitor] 40 mg PO HS #30 tab Nitroglycerin Sl Tabs [Nitrostat] 0.4 mg SUBLINGUAL Q5M PRN #30 tab PRN Reason: Chest Pain Metoprolol Succinate (ER) [Toprol XL] 25 mg PO DAILY #30 tab Continue Loratadine [Claritin] 10 mg PO DAILY No Action Fluticasone Nasal [place] [Flonase Nasal [place]] 1 spr EA NOSTRIL BID Glucosam/Niko-Msm1/C/Gilbert/Bosw [Glucosamine-Chondroitin Tablet] 1 tab PO DAILY Discharge Medication List Fluticasone Nasal [place] [Flonase Nasal [place]] 1 spr EA NOSTRIL BID 10/23/22 [History] Glucosam/Niko-Msm1/C/[place]/Bosw [Glucosamine-Chondroitin Tablet] 1 tab PO DAILY 10/23/22 [History] Loratadine [Claritin] 10 mg PO DAILY 10/23/22 [History] Aspirin 81 mg PO DAILY #30 tab 10/25/22 [Rx] Atorvastatin [Lipitor] 40 mg PO HS #30 tab 10/25/22 [Rx] Metoprolol Succinate (ER) [Toprol XL] 25 mg PO DAILY #30 tab 05/20/23 [Rx] Nitroglycerin Sl Tabs [Nitrostat] 0.4 mg SUBLINGUAL Q5M PRN #30 tab 10/25/22 [Rx] Prasugrel [Effient] 10 mg PO DAILY #30 tab 10/25/22 [Rx] lisinopriL [Zestril] 5 mg PO BID #60 tab 10/25/22 [Rx] Follow up Appointment(s)/Referral(s): Jesus Rodriguez MD [Primary Care Provider] - 1-2 days Jaret Cohen MD [STAFF PHYSICIAN] - 1 Week Discharge Disposition: HOME SELF-CARE
== END 2022-10-25 14:08 | disposition home or self-care (01) | DRG 247 ==
LOC: EC 12:19 → 3SCARD 15:31
PROVIDERS: ADMIT Hospitalist; ATTEND Hospitalist
PROC: 4A023N7 Measurement of Cardiac Sampling and Pressure, Left Heart, Percutaneous Approach (ICD-10-PCS; 2022-10-24)
PROC: B2111ZZ Fluoroscopy of Multiple Coronary Arteries using Low Osmolar Contrast (ICD-10-PCS; 2022-10-24)
PROC: B240ZZ3 Ultrasonography of Single Coronary Artery, Intravascular (ICD-10-PCS; 2022-10-24)
PROC: 027034Z Dilation of Coronary Artery, One Artery with Drug-eluting Intraluminal Device, Percutaneous Approach (ICD-10-PCS; principal; 2022-10-24 09:30)
PROC: 02703ZZ Dilation of Coronary Artery, One Artery, Percutaneous Approach (ICD-10-PCS; 2022-10-24 14:30)
DX: I21.4 Non-ST elevation (NSTEMI) myocardial infarction (principal); J98.11 Atelectasis; I25.110 Atherosclerotic heart disease of native coronary artery with unstable angina pectoris; I08.3 Combined rheumatic disorders of mitral, aortic and tricuspid valves; Y93.K1 Activity, walking an animal; Z82.49 Family history of ischemic heart disease and other diseases of the circulatory system; Z95.5 Presence of coronary angioplasty implant and graft
CPT/HCPCS: 36415; 71046; 80048; 80053; 80061; 84484; 85025; 85610; 85730; 92978; 93005; 93306; 93458

== ENCOUNTER → 2022-11-28 | Outpatient (CLI) | payer MEDICARE, OTHER ==
[2022-11-28 11:36] LABS: ALT 30 U/L (10-49); AST 28 U/L (14-35); Chol/HDL Ratio 2.55 Ratio; LDL Cholesterol,Calculated 61.6 mg/dL (0.0-131.0); VLDL Calculation 14.42 mg/dL (5.00-40.00)
== END | disposition home or self-care (01) ==
LOC: LABWHC1 07:47
PROVIDERS: ATTEND Internal Medicine Cardiovascular Disease
DX: E78.2 Mixed hyperlipidemia (principal)
CPT/HCPCS: 36415; 80061; 84450; 84460

== ENCOUNTER → 2023-09-28 | Outpatient (CLI) | payer MEDICARE, OTHER ==
[2023-09-28 11:29] LABS: ALT 21 U/L (10-49); AST 23 U/L (14-35); Chol/HDL Ratio 2.61 Ratio; LDL Cholesterol,Calculated 58.5 mg/dL (0.0-131.0); VLDL Calculation 11.92 mg/dL (5.00-40.00)
== END | disposition home or self-care (01) ==
LOC: LABWHC1 07:08
PROVIDERS: ATTEND Internal Medicine Cardiovascular Disease
DX: E78.2 Mixed hyperlipidemia (principal)
CPT/HCPCS: 36415; 80061; 84450; 84460

== ENCOUNTER → 2024-03-01 | Outpatient (CLI) | payer MEDICARE, OTHER ==
--- NOTE | 2024-03-01 09:20 | XR ---
EXAMINATION TYPE: XR shoulder complete LT DATE OF EXAM: 03/01/2024 COMPARISON: NONE HISTORY: Pain TECHNIQUE: Three views are submitted. FINDINGS: The osseous structures are intact. There is no acute fracture or dislocation. Mild AC joint arthropa thy.. IMPRESSION: 1. Mild AC joint arthropathy.. [facility] divina KumariSoper, , 03/01/2024 9:18 AM
== END | disposition home or self-care (01) ==
LOC: RADXRMAIN 09:00
PROVIDERS: ATTEND Family Medicine
DX: M24.812 Other specific joint derangements of left shoulder, not elsewhere classified